=== PATIENT | female | born 2005 | race Caucasian/White ===

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

== ENCOUNTER 2023-04-21 09:08 | Emergency (ER) | payer BC, SELFPAY ==
[2023-04-21 09:50] VITALS: BP 145/80; PULSE 74; RESP 20; TEMP 37.2; O2SAT 97; BMI 34.9
--- NOTE | 2023-04-21 09:55 | EXP.UTC ---
Discharge Plan Disposition Patient Disposition: Home, Self-Care Condition: Good Prescriptions Prescriptions: New prednisone [prednisone] 20 mg tablet 20 mg PO DAILY 3 Days Qty: 3 0RF amoxicillin [amoxicillin] 875 mg tablet 875 mg PO Q12H Qty: 20 0RF [id number]-umutgknec-CH [Bromfed DM] 2-30-10 mg/5 mL Syrup 5 ml PO Q6H PRN (Reason: Cough) Qty: 240 0RF No Action sertraline 25 mg tablet 25 mg PO DAILY Rx Instructions: TAKE 1 TABLET BY MOUTH ONCE DAILY AT BEDTIME FOR ANXIETY norgestimate-ethinyl estradiol [Tri-Sprintec (28)] 0.18/0.215/0.25 mg-35 mcg (28) tablet 1 tab PO DAILY Rx Instructions: Take 1 tablet by mouth once daily Referrals Follow up/Referrals: Itzel Flores PA [Primary Care Provider] - See instructions Activity Restrictions/Add. Instructions Additional Instructions/Restrictions: Drink plenty of fluids. Take tylenol or ibuprofen for pain or fever. Take the medications as directed. Follow up with your regular doctor. GO TO THE ER FOR ANY WORSENING SYMPTOMS Clinical Impressions Clinical Impression: Pharyngitis, Otitis media Instructions Patient Instructions: Sore Throat, DI for Pharyngitis/Tonsillopharyngitis -- Adult Discharge ED Provider: Gregorio Gamez [facility] General Stated complaint: sore throat, left ear pain Time Seen by Provider: 04/21/23 09:55 History of Present Illness Provider Complaint: She states that for the past 2 days she has had sore throat, chills, body aches and low grade fever. Related Data Home Medications Medication Instructions Recorded Confirmed norgestimate-ethinyl estradiol 1 tab PO DAILY 04/21/23 04/21/23 0.18 mg/0.215mg/0.25mg-35 mcg(28)tablet (Tri-Sprintec (28)) sertraline 25 mg tablet 25 mg PO DAILY 04/21/23 04/21/23 Previous Rx's Medication Instructions Recorded amoxicillin 875 mg tablet 875 mg PO Q12H #20 tabs 04/21/23 [id number]-wwxcugcipbgrqrd-FP 5 ml PO Q6H PRN Cough #240 mL 04/21/23 2 mg-30 mg-10 mg/5 mL oral syrup (Bromfed DM) prednisone 20 mg tablet 20 mg PO DAILY 3 days #3 tabs 04/21/23 Allergies Allergy/AdvReac Type Severity Reaction Status Date / Time No Known Allergies Allergy Verified 04/11/23 14:18 [facility] Disclaimer: The information contained in this section may have been updated after the patient was seen, as this information can be updated by other users. Medical History (Updated 04/21/23 @ 10:15 by Gregorio Gamez APRN) Acute foreign body of left earlobe Social History Smoking Status: Never smoker alcohol intake: never substance use type: denies use current occupational status: employed Travel in the last 8 weeks: None housing: house ROS Obtained: Yes All systems reviewed & no additional complaints except as documented Constitutional Constitutional: Reports chills and Reports fever(s) Eyes Eyes: Denies eye discharge ENT Ears, Nose, Mouth, and Throat: Reports as per HPI Cardiovascular Cardiovascular: Denies chest pain Respiratory Respiratory: Denies chest congestion and Reports cough Gastrointestinal Gastrointestingal: Reports nausea; Denies abdominal pain, constipation, cramping, diarrhea or vomiting Musculoskeletal Musculoskeletal: Denies arthralgias Integumentary/Breasts Skin/Breast: Denies rash Neurologic Neurologic: Denies paresthesias Physical Exam General General appearance: alert and in no apparent distress Head Head exam: atraumatic, normocephalic and normal inspection Eye Eye exam: Present normal appearance, PERRL and EOMI ENT ENT exam: Present mucous membranes moist and normal external ear exam Expanded ENT Exam TM/Canal exam: Bilateral TM: erythema and bulging Nose exam: Absent sinus tenderness Mouth exam: Present normal external inspection; Absent drooling Teeth exam: Present normal inspection Throat exam: Present tonsillar erythema, tonsill
[2023-04-21 10:08] LABS: UTC Strep Screen (Rapid) Negative (Negative)
[2023-04-21 10:15] VITALS: BP 145/80; PULSE 74; RESP 20; TEMP 37.2; O2SAT 97
== END 2023-04-21 10:20 | disposition home or self-care (01) ==
PROVIDERS: Emergency Provider Nurse Practitioner Family; PCP Physician Assistant
DX: H66.93 Otitis media, unspecified, bilateral (principal); J02.9 Acute pharyngitis, unspecified; R50.9 Fever, unspecified
CPT/HCPCS: 87880; 99212; 99214; G0463

== ENCOUNTER 2023-05-02 08:29 | Emergency (ER) | payer BC, SELFPAY ==
[2023-05-02] VITALS (11 sets, daily range): BP systolic 112–154; BP diastolic 55–90; PULSE 64–117; RESP 16–20; TEMP 36.8; O2SAT 96–100; BMI 32.5
--- NOTE | 2023-05-02 08:33 | PC.NURSE ---
pt ambulatory to restroom without complications
--- NOTE | 2023-05-02 08:44 | CT_ITS ---
FINAL REPORT TECHNIQUE: After the administration of intravenous contrast, axial images were obtained through the abdomen and pelvis by computed tomography. The study was performed with techniques to keep radiation dose as low as reasonably achievable, (ALARA). Individual dose reduction techniques using automated exposure control or adjustment of mA and/or kV according to the patient's size were employed. CLINICAL HISTORY: RLQ abd pain FINDINGS: Abdomen: The lung bases are clear. The liver parenchyma is homogeneous. The gallbladder is present. The spleen, pancreas, adrenals and kidneys appear unremarkable. The aorta is normal in caliber. There is no free fluid. There are enlarged lymph nodes in the right lower quadrant measuring up to 1.5 cm. Pelvis: The appendix is not clearly seen as a discrete structure. There is a large amount of stool throughout the colon. Physiologic goal cysts are seen in the ovaries bilaterally. The urinary bladder is unremarkable. There is trace free fluid, favor physiologic. IMPRESSION: Enlarged right lower quadrant lymph nodes favored to be related to mesenteric adenitis. Bilateral ovarian cysts. Reviewed, Interpreted and Dictated by Chava Sebastian MD Transcribed by Christelle Chen Authenticated and [facility]
[2023-05-02 08:51] LABS: Microscopic, Urine URINE MICROSCOPIC (MICROSCOPIC)
[2023-05-02 08:53] LABS: Appearance,Urine CLEAR (Clear); Bilirubin,Urine Negative (Negative); Blood, Urine Negative (Negative); Color,Urine YELLOW (Yellow); Glucose,Urine (UA) Negative (Negative); Ketones,Urine Negative (Negative); Leukocyte Esterase,Urine 1+ (Negative); Nitrate,Urine Negative (Negative); PH,Urine 5.5 (5.0-8.5); Protein,Urine Negative (Negative); Specific Gravity, Urine >= 1.030 (1.005-1.030); Urobilinogen,Urine 0.2 EU/dl (0.2)
--- NOTE | 2023-05-02 08:55 | HMH.EDGENADL ---
Discharge Plan Disposition Patient Disposition: Home, Self-Care Prescriptions Prescriptions: New ondansetron 4 mg tablet,disintegrating 4 mg PO Q6H PRN (Reason: nausea and vomiting) 5 Days Qty: 20 0RF No Action sertraline 25 mg tablet 25 mg PO DAILY Rx Instructions: TAKE 1 TABLET BY MOUTH ONCE DAILY AT BEDTIME FOR ANXIETY norgestimate-ethinyl estradiol [Tri-Sprintec (28)] 0.18/0.215/0.25 mg-35 mcg (28) tablet 1 tab PO DAILY Rx Instructions: Take 1 tablet by mouth once daily prednisone [prednisone] 20 mg tablet 20 mg PO DAILY 3 Days Qty: 3 0RF amoxicillin [amoxicillin] 875 mg tablet 875 mg PO Q12H Qty: 20 0RF pzfvwxcuxrctadj-ctnlcptfb-OT [Bromfed DM] 2-30-10 mg/5 mL Syrup 5 ml PO Q6H PRN (Reason: Cough) Qty: 240 0RF Referrals Follow up/Referrals: Itzel Flores PA [Primary Care Provider] - See instructions Activity Restrictions/Add. Instructions Additional Instructions/Restrictions: Your CT scan today demonstrated mesenteric adenitis which is likely reactive to your recent viral infection that you had. Please return with any significant worsening of your symptoms and follow-up with primary care doctor as needed. Clinical Impressions Clinical Impression: Mesenteric adenitis, Abdominal pain, RLQ Discharge ED Provider: Klarissa Junior General Adult HPI General Chief complaint: PAIN Stated complaint: rt side pain Time Seen by Provider: 05/02/23 08:39 Mode of Arrival: Ambulatory Source of Information: Patient Limitations: No Limitations Description of Symptoms (Recalled from ER Triage Doc. by RN): pt to ed accompanied by mother. pt states she woke up this morning with RLQ pain, diaphorsis, and nausea. pt denies vomiting. History of Present Illness HPI narrative: Patient is a 18-year-old previously healthy female presenting today with right lower quadrant abdominal pain. States she went to bed last night without any symptoms and woke up this morning with significant pain. This began at 7 AM she typically wakes up around 8 so she believes this pain is what woke her up. She denies any urinary symptoms including any frequency urgency dysuria or blood in her urine. She denies any vaginal discharge or vaginal bleeding or any constipation or diarrhea. No history of ovarian cyst that she is aware of. No fevers or chills or any other symptoms. Related Data Home Medications Medication Instructions Recorded Confirmed norgestimate-ethinyl estradiol 1 tab PO DAILY 04/21/23 04/21/23 0.18 mg/0.215mg/0.25mg-35 mcg(28)tablet (Tri-Sprintec (28)) sertraline 25 mg tablet 25 mg PO DAILY 04/21/23 04/21/23 Previous Rx's Medication Instructions Recorded amoxicillin 875 mg tablet 875 mg PO Q12H #20 tabs 04/21/23 mbsxexhxxbjiyjo-ecgpfyfyrzfkkrg-FP 5 ml PO Q6H PRN Cough #240 mL 04/21/23 2 mg-30 mg-10 mg/5 mL oral syrup (Bromfed DM) prednisone 20 mg tablet 20 mg PO DAILY 3 days #3 tabs 04/21/23 ondansetron 4 mg disintegrating 4 mg PO Q6H PRN nausea and 05/02/23 tablet vomiting 5 days #20 tabs Allergies Allergy/AdvReac Type Severity Reaction Status Date / Time No Known Allergies Allergy Verified 04/11/23 14:18 [facility] Disclaimer: The information contained in this section may have been updated after the patient was seen, as this information can be updated by other users. Medical History (Updated 05/02/23 @ 10:32 by Klarissa Junior MD) Acute foreign body of left earlobe Social History Smoking Status: Never smoker alcohol intake: never substance use type: denies use current occupational status: employed Travel in the last 8 weeks: None housing: house ROS Obtained: Yes All systems reviewed & no additional complaints except as documented Physical Exam General General appearance: alert Respiratory Respiratory exam: Present normal lung sounds bilaterally Cardiovascular Cardiovasc
[2023-05-02 08:56] LABS: Basophils % 0.3 % (0.1-2.0); Chloride 105 mmol/L (98-107); Eosinophils # 0.2 K/mm3 (0.0-0.4); Eosinophils % 1.7 % (0.1-12.0); Hematocrit 41.2 % (37.0-47.0); Hemoglobin 13.6 g/dL (12.2-16.2); Lymphocytes # 2.4 K/mm3 (0.7-4.5); Lymphocytes % 24.5 % (10-50); Mean Platelet Volume 7.7 fl (7.4-10.4); Monocytes # 0.4 K/mm3 (0.1-1.0); Monocytes % 4.2 % (1.7-9.3); Neutrophils # 6.7 K/mm3 (1.8-7.8); Neutrophils % 69.4 % (37.0-80.0); Platelet Count 287 K/mm3 (142-424); Potassium 3.9 mmoL/L (3.5-5.1); Red Blood Count 4.53 M/mm3 (4.20-5.40); Red Cell Distribution Width 13.2 % (11.5-17.5); Sodium 138 mmol/L (136-145); White Blood Count 9.6 K/mm3 (4.5-13.0)
[2023-05-02 08:59] LABS: Alanine Aminotransferase 22 U/L (12-78); Albumin Level 4.5 g/dl (3.5-5.0); Albumin/Globulin Ratio 1.3 (1.1-1.8); Alkaline Phosphatase 65 U/L (38-126); Anion Gap 11.9 mEq/L (5-15); Aspartate Amino Transferase 27 U/L (14-36); Bilirubin,Total 0.4 mg/dl (0.2-1.3); Blood Urea Nitrogen 15 mg/dl (7-17); Calcium 9.1 mg/dl (8.4-10.2); Carbon Dioxide 25 mmol/L (22.0-30.0); Creatinine Clearance Estimated 174 mL/min (50-200); Estimated Glomerular Filt Rate 107 ml/min (>60); GFR (African American) 129 ML/MIN (>60); Globulin 3.5 g/dL (1.3-3.2); Glucose 90 mg/dl (74-100)
[2023-05-02 09:05] LABS: HCG Qualitative, Serum Negative (Negative)
[2023-05-02 09:06] LABS: Bacteria,Urine 3+ /lpf; Yeast,Urine Occasional /lpf
== END 2023-05-02 10:53 | disposition home or self-care (01) ==
PROVIDERS: Emergency Provider Student in an Organized Health Care Education/Training Program; PCP Physician Assistant
DX: R10.31 Right lower quadrant pain (principal); I88.0 Nonspecific mesenteric lymphadenitis; R11.0 Nausea
CPT/HCPCS: 74177; 80053; 81001; 84703; 85025; 87086; 96361; 96374; 96375; 99285; J2405; Q9967

== ENCOUNTER 2024-04-26 10:08 | Emergency (ER) | payer BC, SELFPAY ==
[2024-04-26 10:20] VITALS: BP 141/90; PULSE 99; RESP 19; TEMP 37.4; O2SAT 98; BMI 35.2
[2024-04-26 10:52] LABS: UTC Strep Screen (Rapid) Negative (Negative)
--- NOTE | 2024-04-26 10:59 | ED_ITS ---
Discharge Plan Disposition Patient Disposition: Home, Self-Care Condition: Good Prescriptions Prescriptions: New cefdinir 300 mg capsule 300 mg PO BID Qty: 20 0RF No Action famotidine 40 mg tablet 40 mg PO DAILY Patient Comments: TAKE 1 TABLET BY MOUTH ONCE DAILY FOR HEARTBURN omeprazole 40 mg capsule,delayed release(DR/EC) 40 mg PO DAILY Patient Comments: TAKE 1 CAPSULE BY MOUTH ONCE DAILY FOR HEARTBURN sertraline 25 mg tablet 25 mg PO HS Patient Comments: TAKE 1 TABLET BY MOUTH ONCE DAILY AT BEDTIME FOR ANXIETY norgestimate-ethinyl estradiol [Tri-Sprintec (28)] 0.18/0.215/0.25 mg-35 mcg (28) tablet 1 tab PO DAILY Patient Comments: TAKE 1 TABLET BY MOUTH ONCE DAILY desvenlafaxine succinate 25 mg tablet extended release 24 hr 25 mg PO BID Patient Comments: TAKE ONE TABLET BY MOUTH DAILY FOR 2 WEEKS, THEN TAKE 2 DAILY FOR 2 WEEKS Referrals Follow up/Referrals: Itzel Flores PA [Primary Care Provider] - See instructions Activity Restrictions/Add. Instructions Additional Instructions/Restrictions: Start antibiotic patient to take as ordered for a full length of time even if you feel better. Sinus infections do not get better overnight. It may take 2-3 days to notice much improvement so be sure to use conservative measures as discussed for symptoms. Flonase 1 spray each nostril daily to help with nasal congestion, sinus and ear pressure/information Increase fluids Humidifier/vaporizer as needed Tylenol and ibuprofen as needed for fever or pain. If symptoms do not improve or get worse return or be seen in the ER Follow-up with primary care this week Clinical Impressions Clinical Impression: Acute maxillary sinusitis, Acute otitis media of right ear with perforation Instructions Patient Instructions: DI for Sinusitis, Middle Ear Infection Print Language Print Language: Occitan Discharge ED Provider: Everardo ([facility] HPI General Stated complaint: cough, congestion, sore throat, bilateral ear pain Mode of Arrival: Ambulatory Source of Information: Patient Limitations: No Limitations Time Seen by Provider: 04/26/24 10:59 Description of Symptoms (Recalled from Triage Doc. by RN): PATIENT C/O CONGESTION, HEADACHE, EAR PAIN, AND SORE THROAT X 2 DAYS HEENT Symptoms (Recalled from RN notes): Yes Resp Symptoms (Recalled from RN notes): No Skin Symptoms (Recalled from RN notes): No MS Symptoms (Recalled from RN notes): No Functional Status (Recalled from RN notes): WNL History of Present Illness Provider Complaint: 19-year-old female presents for right ear pain, green nasal congestion, headache, and sore throat for 2 days Related Data Home Medications ?Medication ?Instructions ?Recorded ?Confirmed desvenlafaxine succinate 25 mg 25 mg PO BID 04/26/24 04/26/24 tablet,extended release 24 hr famotidine 40 mg tablet 40 mg PO DAILY 04/26/24 04/26/24 norgestimate-ethinyl estradiol 1 tab PO DAILY 04/26/24 04/26/24 0.18 mg/0.215mg/0.25mg-35 mcg(28)tablet (Tri-Sprintec (28)) omeprazole 40 mg capsule,delayed 40 mg PO DAILY 04/26/24 04/26/24 release sertraline 25 mg tablet 25 mg PO HS 04/26/24 04/26/24 Previous Rx's ?Medication ?Instructions ?Recorded cefdinir 300 mg capsule 300 mg PO BID #20 caps 04/26/24 Allergies Allergy/AdvReac Type Severity Reaction Status Date / Time No Known Allergies Allergy Verified 06/05/23 11:19 Worker's Comp Is this a Worker's Comp case?: No [facility] Disclaimer: The information contained in this section may have been updated after the patient was seen, as this information can be updated by other users. Medical History , [employer]) Acute foreign body of left earlobe Social History , [employer]) Smoking Status: Never smoker alcohol intake: never substance use type: denies use current occupational status: employed housing: house ROS Obtained: Yes Systems reviewed as appropriate & no additional complaints except as documented ENT Ears, Nose, Mouth, and Throat: Reports system reviewed and no additional complaints, except as documented, Reports as per HPI, Reports otalgia, Reports nasal discharge, Reports post nasal drip, Reports sinus pain, Reports sinus pressure and Reports sore throat Respiratory Respiratory: Reports system reviewed and no additional complaints, except as documented, Reports as per HPI and Reports cough Physical Exam General General appearance: alert and in no apparent distress ENT ENT exam: Present normal oropharynx and mucous membranes moist Expanded ENT Exam TM/Canal exam: Right TM: perforation Nose exam: Present sinus tenderness Respiratory Respiratory exam: Present normal lung sounds bilaterally Cardiovascular Cardiovascular exam: Present regular rate and normal rhythm Neurological Exam Neurological exam: Present alert and oriented X3 Skin Skin exam: Present warm and intact Medical Decision Making Medical Records Medical records reviewed: Yes I reviewed the patient's medical records. Screening: Per USPSTF and CDC recommendations, given the prevalence of disease in our region, it is our hospital?s policy to screen for HIV and viral Hepatitis for all patients aged 18 and over and those with ongoing risk factors. John Inquiry Pt receiving controlled substance: No John was queried for this patient: No Vital Signs: 04/26/24 10:20 Temperature 99.3 F Temperature Source Oral Pulse Rate [Left Brachial] 99 H Respiratory Rate 19 Blood Pressure [Left Arm] 141/90 H Blood Pressure Mean [Left Arm] 107 Blood Pressure Source [Left Arm] Automatic Cuff Blood Pressure Position [Left Arm] Sitting 02 Sat by Pulse Oximetry 98 Oxygen Delivery Method Room Air Lab Data Lab results reviewed: Yes I reviewed the patient's lab results. Lab Results 04/26/24 10:32: Strep Scn Rapid Clinic Negative Orders (Tests/Meds): ORDERS Category Date Time Status Strep Screen Confirmation Stat Micro 04/26/24 10:32 Received
[2024-04-26 11:11] VITALS: BP 139/90; PULSE 101; RESP 19; TEMP 37.3; O2SAT 98
== END 2024-04-26 11:12 | disposition home or self-care (01) ==
PROVIDERS: Emergency Provider Nurse Practitioner Family; PCP Physician Assistant
DX: H66.91 Otitis media, unspecified, right ear (principal)
CPT/HCPCS: 87880; 99213; G0381

== ENCOUNTER 2024-04-29 11:44 | Outpatient (CLI) | payer BC, SELFPAY ==
[2024-04-29 18:11] LABS: Coronavirus 19, PCR Not Detected (NotDetected); Influenza A, PCR Not Detected (NotDetected); Influenza B, PCR Not Detected (NotDetected)
== END 2024-04-29 23:59 | disposition home or self-care (01) ==
LOC: LAB.DROPOF 04-30 07:27
PROVIDERS: PCP Student in an Organized Health Care Education/Training Program; Visit Provider Student in an Organized Health Care Education/Training Program
DX: J01.00 Acute maxillary sinusitis, unspecified (principal)
CPT/HCPCS: 87636

== ENCOUNTER 2025-05-06 08:24 | Outpatient (CLI) | payer BC, SELFPAY ==
--- NOTE | 2025-05-06 08:26 | US_ITS ---
FINAL REPORT TECHNIQUE: Sonographic images of the right upper quadrant were obtained. CLINICAL HISTORY: EPIGASTRIC PAIN x 3 weeks // nausea and vomiting FINDINGS: PANCREAS: Unremarkable. LIVER: Homogeneous. No focal hepatic lesion. Portal vein patent with normal directional flow.. GALLBLADDER: Gallstones. No gallbladder wall thickening or pericholecystic fluid. COMMON DUCT: 4 mm. Normal for age. RIGHT KIDNEY: The right kidney measures 10.9 cm. There is no hydronephrosis, mass, or stone. FREE FLUID: None. IMPRESSION: Gallstones Reviewed, Interpreted and Dictated by Sil Wong MD Transcribed by Yvette Thomas Authenticated and [facility]
== END 2025-05-06 23:59 | disposition home or self-care (01) ==
LOC: RAD 08:24
PROVIDERS: PCP Physician Assistant; Visit Provider Physician Assistant
DX: K80.20 Calculus of gallbladder without cholecystitis without obstruction (principal)
CPT/HCPCS: 76705

== ENCOUNTER 2025-05-19 11:04 | Outpatient (CLI) | payer BC, SELFPAY ==
[2025-05-19 07:55] VITALS: BMI 30.1
--- OUTSIDE RECORDS SUMMARY | 2025-05-19 11:13 | XMS_ITS ---
Author Organization Unknown ENCOUNTERS Encounter Performer Location Date Diagnosis Diagnosis Status Emergency Lucero Mcgee ([facility]) [address] [place] [address] [id number] JR [place] Ad[place] [facility]) [address] [place] [address] [id number] Emergency [address] [place] [address] [place] [address] [id number] JR Pre Admit [address] [place] [address] [id number] Pre Admit [address] [place] [address] [id number] Emergency [address] [place] [address] [id number] JR Emergency Magdalena Fonsecaley [address] [place] [address] [id number] JR *Note: Encounters from your own facility or health system may be excluded. Allergies, Adverse Reactions, Alerts Allergen Type Severity Identification Date Medications Name Date Quantity Days Supplied GPI Number
[2025-05-19 11:45] LABS: Urine Pregnancy, HCG Qual. Negative (Negative)
== END 2025-05-19 23:59 | disposition home or self-care (01) ==
LOC: PREOP 11:04
PROVIDERS: PCP Physician Assistant; Visit Provider Surgery
DX: Z01.812 Encounter for preprocedural laboratory examination (principal)
CPT/HCPCS: 81025

== ENCOUNTER 2025-05-21 10:03 | Day surgery (SDC) | payer BC, SELFPAY ==
[2025-05-19 13:06] VITALS: BMI 30.1
[2025-05-21] VITALS (11 sets, daily range): BP systolic 125–143; BP diastolic 65–86; PULSE 95–112; RESP 16–18; TEMP 36.8–38; O2SAT 92–99
[2025-05-21] MEDS: LACTATED RINGERS 1000ML 1,000 ML 25 ML IV (10:29)
--- NOTE | 2025-05-21 10:52 | EXP.ANES.CKL ---
[facility] Disclaimer: The information contained in this section may have been updated after the patient was seen, as this information can be updated by other users. Medical History History of gastroesophageal reflux (GERD) Anxiety Acute foreign body of left earlobe Surgical History [place] teeth removed Family History Other No significant family history Social History Smoking Status: Never smoker alcohol intake: never substance use type: denies use current occupational status: employed Travel in the last 8 weeks?: None housing: house Have you lived/traveled outside US in past 30 days?: No Contact w/someone who lives/traveled outside US past 30 days?: No Exposure to someone with infectious disease in past 14 days?: No Do you have a fever (greater than 100.4 F or 38 C)?: No Have you tested positive for COVID-19?: No Exposed to someone with COVID-19 in past 14 days?: No Do you have a sore throat?: No Do you have a cough?: No Do you have any weakness?: No Do you have any diarrhea?: No Are you experiencing any unusual bleeding?: No Do you have any muscle aches/pain?: No Do you have any abdominal pain?: No Are you experiencing loss of taste or smell?: No [facility] Anesthesia Checklist Patient Identification Patient Identification: Arm Band and Family Structural Data Admitted From: Home Planned Operative Procedure/s: Lap Bonnie Consent for Planned Operative Procedure(s) Verified: Yes Verified Documents: Surgical Consent and History and Physical NPO Status Verified Time NPO: 00:00 Additional verifications Patient : No Anesthesia Reactions: No Hx Blood Transfusions: No Blood Transfusion Reaction: No Cephalosporin Allergy: No Previous Colonoscopy: No Airway Assessment Mallampati Score:: Class II C-Spine Mobility Assessed: Yes TMJ Mobility Assessed: Yes Dentition: Good Dentition Neurological Assessment Level of Consciousness: Awake, Alert, Appropriate and Follows Commands Hx Seizures: No Numbness or tingling in extremities: No Anesthesia Plan ASA Class: I Anesthesia Type: General
[2025-05-21] MEDS: LIDOCAINE 1% 20ML MDV 20 ML (11:55)
[2025-05-21] MEDS: SODIUM CHLORIDE IRRIG SOLUTION 3,000 ML 200 ML IR (11:57)
--- NOTE | 2025-05-21 12:39 | EXP.OP.NOTE ---
Date of procedure: 05/21/25 Pre-op Diagnosis:: Symptomatic gallstones Post-op Diagnosis:: Same Procedure performed:: Laparoscopic cholecystectomy Surgeon:: Mir Marquez MD [employer]GMENT LEADER:: Dany Parks Anesthesia: GETA Estimated blood loss (mL): 15 Operative findings:: She had a somewhat distended gallbladder with small stones. Operative note:: Consent was obtained patient was taken to the operating room. She was given preoperative intravenous antibiotics. In the operating room she is placed in a supine position. General anesthesia was induced via endotracheal tube. Abdomen was prepped and draped in the standard surgical fashion. Subumbilical skin incision was made and while performing abdominal wall lift Veress needle was inserted. CO2 pneumoperitoneum was achieved to 15 mmHg. 5 mm optical trocar was inserted at the umbilicus. Intraperitoneal contents were visualized. She was positioned in reverse Trendelenburg and left side down. A couple 5 mm trocars were inserted in the right upper abdomen. 10 mm trocar was inserted in the epigastrium. Gallbladder was grasped retracted anteriorly and superiorly over the dome of the liver. Infundibulum of the gallbladder is retracted anterior laterally. Blunt dissection was carried out the neck of the gallbladder bluntly incising the visceral peritoneum. Meticulous careful dissection was carried out clearly identifying the cystic duct and cystic artery and the critical view of safety. Lymph node of [place] was preserved. Cystic duct was isolated, multiply clipped, and sharply divided. Cystic artery was carefully coagulated with CATIA ultrasonic harmonic kassi and divided. Gallbladder was dissected free from the liver in a retrograde fashion using ultrasonic harmonic kassi. There was a small amount of unavoidable bile spillage from the gallbladder at the site of clipping of the cystic duct on the gallbladder. Additional clip was applied and fluid was suctioned free. Gallbladder was placed within an Endo Catch retrieval device and removed from the peritoneal cavity via the epigastric trocar site. Gallbladder fossa and perihepatic space was irrigated and aspirated until clear. Epigastric trocar site was closed laparoscopically with 0 Vicryl suture using the Jose-Kylah laparoscopic fascial closure device. Trocars were then removed as CO2 pneumoperitoneum was evacuated. Local anesthetic was infiltrated. Skin incisions were closed with 4-0 Monocryl subcuticular fashion. A couple of 5-0 fast-absorbing plain gut sutures were placed in the right upper quadrant trocar sites for epidermal closure. Steri-Strips and dressings were applied. Condition: stable Disposition: PACU Complications:: None immediately apparent
--- NOTE | 2025-05-21 13:06 | P.PNANES_ITS ---
[facility] Anesthesia Record Part I Anesthesia Record I Intake, IV Amount: 1,000 Hydration: Adequate Estimated blood loss (mL): 10 Urine output (mL): 0 Blood Products used (#): none Blood Pressure: 125/67 SaO2: 92 Pulse Rate: 103 Airway Patency: Patent Respiratory Rate: 16 Temperature: 99 F Patient is:: Stable Stable to PACU at:: 12:55
--- NOTE | 2025-05-21 15:42 | EXP.ANES.II ---
[facility] Anesthesia Record Part II Anesthesia Record Part II Discharge Time: 13:57 Destination: Surgical Day Care (OP Surgery) PACU nurse assessment reviewed?: Yes Patient Condition:: Good Anesthesia Complications:: None Swallowing reflex intact?: Yes Airway Patency: Patent Cyanosis?: No Blood Pressure: 131/73 SaO2: 99 Respiratory Rate: 16 Pulse Rate: 95 Temperature: 99 F Mental Status: Alert & Oriented Pain level:: 0 Nausea and/or vomitting:: None Intake, IV Amount: 0 Hydration: Adequate
== END 2025-05-21 13:57 | disposition home or self-care (01) ==
PROVIDERS: PCP Physician Assistant; Visit Provider Surgery
PROC: 0FT44ZZ Resection of Gallbladder, Percutaneous Endoscopic Approach (ICD-10-PCS; CPT 47562; principal; 2025-05-21 11:30)
DX: K80.20 Calculus of gallbladder without cholecystitis without obstruction (principal); F41.9 Anxiety disorder, unspecified; Z79.899 Other long term (current) drug therapy
CPT/HCPCS: 47562; 96374; J0690; J1100; J2003; J2250; J2405; J2704; J2795; J3010; J7120